=== PATIENT | female | born 1940 | race Caucasian/White ===

== ENCOUNTER 2023-01-29 12:12 | Outpatient (REF) | payer OTHER, SELFPAY ==
--- NOTE | ~2023-01-29 | US_ITS ---
EXAMINATION: US EXTRACRANIAL CAROTID DUPLEX, BILATERAL CLINICAL INFORMATION: Stroke. Smoking. Hypertension. COMPARISON: None available. TECHNIQUE: Real-time ultrasound and Doppler techniques (integrating B-mode 2-D vascular images, Doppler spectral analysis and color-flow Doppler imaging) were utilized to interrogate the extracranial carotid arteries, the vertebral arteries and proximal subclavian arteries bilaterally. The degree of stenosis is determined by criteria similar to NASCET. FINDINGS: Right Side: 1. There is severe atherosclerotic plaque seen in the bifurcation/proximal ICA region. 2. The common carotid artery PSV proximally is 46 cm/s and distally 46 cm/s. 3. The proximal internal carotid artery velocities are 404 cm/s systolic and 112 cm/s diastolic. 4. The proximal external carotid artery PSV is 130 cm/s. 5. The vertebral artery shows antegrade flow. 6. The subclavian artery waveforms are normal. Left Side: 1. There is severe atherosclerotic plaque seen in the bifurcation/proximal ICA region. 2. The common carotid artery PSV proximally is 80 cm/s and distally 64 cm/s. 3. The proximal internal carotid artery velocities are 206 cm/s systolic and 56 cm/s diastolic. 4. The proximal external carotid artery PSV is 101 cm/s. 5. The vertebral artery shows antegrade flow. 6. The subclavian artery waveforms are normal. US/US carotid duplex BI IMPRESSION: 1. RIGHT: Moderate, hemodynamically significant stenosis of the proximal right internal carotid artery corresponding to a 50-79% stenosis by velocity criteria. 2. LEFT: Moderate, hemodynamically significant stenosis of the proximal left internal carotid artery corresponding to a 50-79% stenosis by velocity criteria.
--- NOTE | ~2023-01-29 | CT_ITS ---
EXAMINATION: CT HEAD WITHOUT CONTRAST CLINICAL INFORMATION: Evaluate for stroke. COMPARISON: None. TECHNIQUE: Contiguous axial imaging was performed from the skullbase to vertex without intravenous administration of contrast. This CT examination was performed using dose optimization techniques as appropriate, variously including the following: *Automated exposure control *Adjustment of mA and/or kV according to patient size (this includes techniques or standardized protocols for targeted exams where dose is matched to indication/reason for exam; i.e. extremities or head) *Use of iterative reconstruction technique DLP: 637 mGy-cm. FINDINGS: There is no evidence of acute intracranial hemorrhage or territorial infarction. No abnormal mass effect or midline shift is seen. No extra-axial fluid collections are identified. Multiple chronic lacunar infarcts are present in the deep robertson matter structures. There are suspected chronic small vessel ischemic changes in the arlene. Generalized brain parenchymal volume loss evident. Advanced chronic white matter microangiopathic changes noted with confluent areas of low-density throughout the cerebral white matter of both hemispheres. The soft tissues are normal. The mastoid air cells and visualized portions of the paranasal sinuses are fairly well aerated. There are severe degenerative changes of the temporomandibular joints. CT/CT head/brain wo IV con IMPRESSION: Advanced chronic white matter microangiopathy and generalized brain parenchymal volume loss. The possibility of a focal acute ischemic process cannot be ruled out on the basis of this study. No large territorial infarction or acute intracranial hemorrhage. Severe degenerative changes of the temporomandibular joints.
== END 2023-01-29 12:13 | disposition home or self-care (01) ==
LOC: HO.HMGCX 12:12
PROVIDERS: Visit Provider Psychiatry & Neurology Neurology
DX: I63.9 Cerebral infarction, unspecified (principal); I65.23 Occlusion and stenosis of bilateral carotid arteries
CPT/HCPCS: 70450; 93880

== ENCOUNTER 2023-08-25 13:54 | Outpatient (AMB) | payer OTHER, SELFPAY ==
--- NOTE | 2023-08-25 14:01 | MHC.OFFVIS ---
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 Patient has no symptoms. Smokes about a half a pack a day. 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 This all began as workup in [place] where she experienced a facial droop and expressive aphasia dating back to 05/30/2022. She is moved back to [place] and most recently underwent a CT of the carotids after having a duplex study back in January of 2023. Upon discussion with her she reports she smokes about a half pack per day and is a nondiabetic. She also has a history significant for hypertension and hyperlipidemia. She now presents for vascular follow-up with CT angio of the neck. Upon discussion with her she does experience some shortness of breath when climbing a flight of stairs. Review of Systems Const All systems reviewed & are unremarkable except as noted in HPI and below Reports no additional complaints ENT Reports Normal hearing present Card Denies chest pain, Denies chest pain at rest, Denies chest pain with activity and Denies pedal edema Resp Denies cough GI Denies abdominal pain Musc Denies abnormal gait, Denies muscle cramps and Denies radiating pain into limb Skin/Breast Denies skin ulcer and Denies wounds Neuro Reports Normal hearing present and Denies abnormal gait Psych Reports no additional complaints Physical Exam Const General: cooperative, healthy appearing and comfortable Orientation/consciousness: oriented to person, oriented to place and oriented to time HEENT Head: Yes normal to inspection Neck Neck: Yes normal visual inspection Carotids: no bruits Chest Chest palpation & inspection: normal inspection of the chest Resp Effort & Inspection: normal respiratory effort and able to speak in complete sentences Auscultation: clear to auscultation bilaterally, no crackles, no rales, no rhonchi and no wheezes Cardio Rate: regular rate Rhythm: regular rhythm Heart sounds: S1 normal heart sound present and S2 normal heart sound present Bruits: no carotid bruits Peripheral pulses: Peripheral pulses 2+ throughout GI Inspection: Yes normal to inspection Skin Wounds: no wounds Hair: normal Neuro General: oriented to person, oriented to place and oriented to time Cranial nerves: Yes CN's II-XII intact bilaterally and Yes Normal hearing present Cognition (Neuro): normal cognition Motor exam (neuro): 5/5 motor strength present throughout Extrem Other: venous exam: No significant superficial varicosities or spider telangiectasias, minimal edema General: No clubbing, No cyanosis and No edema Psych Appearance: grossly normal Mental Status: mental status grossly normal Speech and movement: Normal speech and movement present Results Reviewed Results Reviewed: CT angiogram dated 05/28/2023 demonstrates right side greater than 90% left side less than 50% stenosis. Study was from [facility]. Assessment & Plan Assessment & Plan (1) Carotid stenosis, right: Code(s): I65.21 - Occlusion and stenosis of right carotid artery Category: Medical Plan: In short patient has high-grade right carotid stenosis. We have reviewed signs and symptoms of a stroke. We also discussed risk factor modification inclusive a healthy diet low in cholesterol. The patient will require right carotid endarterectomy. In addition the patient will require cardiac risk stratification and pulmonary evaluation as well. Due to the high-grade stenosis we will try to schedule as soon as possible. Thank you for allowing us to assist in her care. If there are any questions or concerns please do not hesitate to contact us. Coding Level of Care Code Est Pt Level 4 (34762) Diagnoses Carotid stenosis, right I65.21
== END 2023-08-25 15:14 | disposition home or self-care (01) ==
PROVIDERS: Visit Provider Surgery Vascular Surgery
DX: I65.21 Occlusion and stenosis of right carotid artery (principal)
CPT/HCPCS: 99214

== ENCOUNTER → 2023-08-25 13:54 | Outpatient (BNVA) | payer OTHER, SELFPAY | PROVIDERS: Visit Provider Surgery Vascular Surgery ==

== ENCOUNTER 2023-09-03 13:44 | Outpatient (AMB) | payer OTHER, SELFPAY ==
--- NOTE | 2023-09-03 13:51 | A.OFFVIS_ITS ---
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 Present Accompanied by: Sister Allergies No Known Allergies Allergy (Verified 08/25/23 14:02) Medication List - Last Reconciled 09/03/23 by Dominguez Garner MD amlodipine 5 mg PO DAILY atorvastatin 20 mg PO DAILY cholecalciferol (vitamin D3) 50 mcg PO DAILY citalopram 10 mg PO DAILY donepezil 5 mg PO DAILY xfxvcuaa-nje-xszp-FA-vit K-lut 8 mg iron-400 mcg-50 mcg (Centrum Silver Women) 1 tab PO DAILY spironolactone 25 mg PO DAILY ticagrelor (Brilinta) 90 mg PO ONCE HPI Comments Details: Elizabeth was referred here for preoperative cardiovascular risk stratification prior to right carotid endarterectomy. She has had prior history of CVA, not able to provide much history due to cognitive issues. History was mostly provided by his sister was present during the entire visit. Patient was noted to have significant right carotid stenosis by neck CTA with prior history of stroke and had been referred to vascular surgery. Now referred to us for preoperative cardiovascular risk stratification for this surgery. Patient unfortunately continues to smoke. Currently very limited activity level. Says does not not think. She does get exertional shortness of breath with activity. She is currently on once a day Brilinta dosing, she said when she was taking twice a da y she developed epistaxis. Has been seen by ENT in [place] and had undergone cauterization procedure. However she continues to be on once a day Brilinta therapy which is inadequate therapy. She is taking all her other medications regularly. Denies any clear exertional chest pain. No prolonged palpitation irregular heartbeat. No lightheadedness, syncope. No new neurologic deficits. [facility] Surgical History History of rectal surgery Hx of hysterectomy Family History Father No problems noted. Mother No problems noted. Social History Patient Tobacco Use Status: Current everyday Tobacco user Cigarette Packs Per Day: 10 Review of Systems Const Denies chills, Denies daytime sleepiness, Denies fatigue, Denies fever(s), Denies frequent falls, Denies poor appetite, Denies snoring, Denies stops breathing during sleep, Denies weakness, Denies weight gain and Denies weight loss Eyes Denies loss of vision ENT Denies dizziness and Denies hearing loss Card Denies chest pain, Denies claudication, Denies leg edema, Denies lightheadedness, Denies palpitations, Denies dyspnea, Denies dyspnea on exertion and Denies orthopnea Resp Denies cough, Denies excessive phlegm production, Denies dyspnea, Denies dyspnea on exertion, Denies snoring and Denies wheezing GI Denies abdominal pain, Denies hematochezia, Denies change in bowel habits, Denies nausea and Denies vomiting Denies urinary frequency and Denies dysuria Musc Denies arthralgias, Denies muscle weakness, Denies numbness and Denies other (frequent falls) Skin/Breast Denies nail changes and Denies rash Neuro Denies Abnormal speech present, Denies dizziness, Denies frequent falls, Denies loss of vision, Denies memory loss, Denies numbness and Denies weakness Psych Denies depression and Denies memory loss Endo Denies fatigue and Denies palpitations Rubio/Lymph Reports easy bruising and Reports other (anemia) Aller/Immun Denies wheezing Physical Exam Vital Signs: Last Vital Signs Pulse 77 09/03/23 13:52 BP 130/82 09/03/23 13:52 BMI result Body Mass Index 21.6 Const General: cooperative, comfortable, no acute distress, alert, awake and anxious Nutritional Appearance: underweight Orientation/consciousness: patient oriented x3 Limitations: no limitations HEENT Head: Yes normocephalic and Yes atraumatic Neck Neck: Yes trachea midline, Yes supple and Yes no JVD Resp Effort & Inspection: normal respiratory effort Auscultation: no rales, no wheezes and diminished lung sounds Cardio Jugular venous distension: no JVD Palpation: normal PMI Rate: regular rate Rhythm: regular rhythm Heart sounds: S1 normal heart sound present, S2 normal heart sound present, no click, no gallops and no murmurs GI Auscultation: normal bowel sounds Skin General skin exam: no rashes or lesions noted Neuro General: patient oriented x3 and no focal motor deficits Speech: No Abnormal speech present Extrem General: Yes no clubbing, cyanosis or edema Office Procedures EKG Details: EKG shows normal sinus rhythm nonspecific ST T wave changes [id number], Complete Assessment & Plan Assessment & Plan (1) Preoperative cardiovascular examination: Code(s): Z01.810 - Encounter for preprocedural cardiovascular examination Category: Medical Plan: Preoperative cardiovascular risk stratification this elderly woman with significant right carotid stenosis with very limited exercise activity with significant amount of risk factors for obstructive coronary artery disease. She does have symptoms exertional shortness of breath. This could be related to underlying COPD. I discussed with her about further testing prior to undergoing intermediate risk surgery. Would suggest exercise myocardial perfusion imaging to evaluate for myocardial ischemia. Also suggest an echocardiogram given her longstanding history of hypertension to assess for LV systolic and diastolic function to evaluate for hypertensive heart disease. Further risk stratification based on the finding of this test results which hopefully will be done in the near future. (2) Carotid stenosis, right: Code(s): I65.21 - Occlusion and stenosis of right carotid artery Category: Medical Plan: Patient with significant right carotid artery stenosis to undergo carotid endarterectomy surgery. She is currently on good antihypertensive regimen blood pressure is well controlled. Continue the same. Importance of this was discussed. Currently on statin therapy and this should be targeted to closer to 60 mg/dL through your office. However she is on inadequate antiplatelet therapy. Brilinta is twice a day drug due to its half-life. Either option could be to change to Brilinta 60 mg b.i.d. for prophylaxis and/or to aspirin and Plavix combination therapy. This was discussed with her. This will be pursued through your office. Complete smoking cessation was advised. Will follow up in the clinic if need be. Thank you for allowing me to partake in his care Orders: Orders CA stress test Today Z01.810 - Encounter for preprocedural cardiovascular examination NM cardiolite stress test 2 Weeks R07.9 - Chest pain, unspecified, Z01.810 - En counter for preprocedural cardiovascular examination CA echo transthoracic complete Today Z01.810 - Encounter for preprocedural cardiovascular examination Coding Level of Care Code New Pt Level 4 (74381) Diagnoses Preoperative cardiovascular examination Z01.810 Carotid stenosis, right I65.21 CPT Codes EKG - CPT: 40748-[id number], Complete ([id number])
[2023-09-03 13:52] VITALS: BP 130/82; PULSE 77; BMI 21.6
== END 2023-09-03 14:33 | disposition home or self-care (01) ==
PROVIDERS: PCP Internal Medicine; Visit Provider Internal Medicine Cardiovascular Disease
DX: Z01.810 Encounter for preprocedural cardiovascular examination (principal); I65.21 Occlusion and stenosis of right carotid artery
CPT/HCPCS: 93010; 99204

== ENCOUNTER → 2023-09-03 13:44 | Outpatient (BNVA) | payer OTHER, SELFPAY | PROVIDERS: PCP Internal Medicine; Visit Provider Internal Medicine Cardiovascular Disease | DX: Z01.810 Encounter for preprocedural cardiovascular examination (principal); I65.21 Occlusion and stenosis of right carotid artery; Z79.899 Other long term (current) drug therapy | CPT/HCPCS: 93005 ==

== ENCOUNTER → 2023-09-08 07:45 | Outpatient (REF) | payer OTHER, SELFPAY ==
--- NOTE | 2023-09-08 07:57 | CA_ITS ---
Transthoracic Echocardiogram Patient (Last, First, Middle): Elizabeth Layton, Gender: Female Date of : 1940 Age: 83 Procedure Date: 09/08/2023 Procedure Type: Transthoracic Echocardiogram Location: OP Height: 157.48 cm Weight: 57.15 kg BSA: 1.57 m2 Heart Rate: 69 bpm BP: 128 / 80 mmHg Legal Entity Controller: JENNIFER Referring MD: Dominguez Garner MD Symptoms: Z01.810 - Encounter for preprocedural cardiovascular examination Study Quality: Adequate ECG Rhythm: Sinus Conclusions: - The left ventricular systolic function is normal. The calculated ejection fraction is 58% by biplane method. - No obvious valvular pathology seen on this study. - Mild pulmonary hypertension is present. Findings Left Ventricle Normal left ventricular cavity size. The left ventricular systolic function is normal. The calculated ejection fraction is 58% by biplane method. There is no evidence of regional wall motion abnormalities. Evidence suggests grade I (mild) diastolic dysfunction. There is mild septal and mild basal asymmetric hypertrophy. Right Ventricle Normal right ventricular cavity size. There is mildly decreased right ventricular systolic function. Atria Both atria are normal in size. Aortic Valve There is a normal trileaflet aortic valve. There is mild calcification of the aortic valve. There is no aortic valve stenosis. There is trace (trivial) aortic valve regurgitation. Mitral Valve The mitral valve appears normal. There is no mitral valve regurgitation. There is no mitral valve stenosis. Pulmonic Valve The pulmonic valve is likely normal. Tricuspid Valve Normal tricuspid valve structure. There is trace tricuspid valve regurgitation. Mild pulmonary hypertension is present. Great Vessels The asc aorta is normal in size. Venous The inferior vena cava is normal in size and collapses greater than 50% with inspiration. Pericardium/Pleural There is no evidence of pericardial effusion. Prior Study Comparison No prior study available for comparison. Recommendations, Care & Conclusions No obvious valvular pathology seen on this study. Measurements 2D Linear Measurements IVSd: 1.02 0.6-0.9/0.6-1.0 cm LVIDd: 3.74 3.9-5.3/4.2-5.9 cm LVIDd Index: 2.38 2.4-3.2/2.2-3.1 cm/m2 LVIDs: 2.87 2.0-3.6 cm LVPWd: 1.00 0.7-1.1 cm LA Diam: 3.20 2.7-3.8/3.0-4.0 cm LAIDs Index: 2.04 1.5-2.3 cm/m2 LV Mass: 144.34 67-162/88-224 g LV Mass Index: 91.94 43-95/49-115 g/m2 LVOT Diam: 2.20 3.0+(-)1.3 cm 2D Systolic Function EF 4C: 53.80 >55% EF 2C: 64.00 >55% EF BiP: 58.30 >55% Mitral Valve MV Pk E: 0.51 MV PK A: 0.90 MV Decel Time: 287.00 E/A: 0.60 E'Lateral: 4.03 E'Medial: 2.83 E/E' Med: 17.90 E/E' Lat: 12.60 PHT: 84.00 MVA PHT: 2.62 Decel Jennings: 1.76 Aortic Valve AoV Pk Royer: 1.18 AoV Pk Grad: 6.00 CONNOR: 2.63 LVOT LVOT Pk Royer: 0.83 LVOT Mn Royer: 0.56 LVOT VTI: 0.18 LVOT Pk Grad: 3.00 LVOT Mn Grad: 1.00 LVOT Diam: 2.20 LVOT Area: 3.80 Diastolic Function MV Pk E: 0.51 MV Pk A: 0.90 E/A: 0.60 E'Medial: 2.83 E/E' Med: 17.90 E' Laterial: 4.03 E/E' Lat: 12.60 Right Ventricle TAPSE (mm): 12.20 TVS' Royer: 9.14 Tricuspid Valve TR Pk Royer: 2.97 TR Pk Grad: 35.00 RA Press: 3.00 RVSP: 38.00 Great Vessels Aorta Sinus of Valsalva: 3.10 2.0-3.5 cm Ao Asc: 3.40 2.1-3.4 cm Pulmonary Veins Pulm Vein S/D 3.30 Pulmonary Valve PV Pk Royer: 0.85 Peak PV Grad: 3.00 Updated in Other Vendor System with Status of Final Warner Colon MD electronically signed on 09/08/2023 12:42:39 PM with status of Final
== END ==
LOC: HO.CARD 07:45
PROVIDERS: PCP Internal Medicine; Visit Provider Internal Medicine Cardiovascular Disease
DX: Z01.810 Encounter for preprocedural cardiovascular examination (principal)
CPT/HCPCS: 93306

== ENCOUNTER → 2023-09-08 07:57 | Outpatient (BNV) | payer OTHER, SELFPAY | PROVIDERS: PCP Internal Medicine; Visit Provider Internal Medicine | DX: I35.8 Other nonrheumatic aortic valve disorders (principal); I42.2 Other hypertrophic cardiomyopathy | CPT/HCPCS: 93306 ==

== ENCOUNTER → 2023-09-10 08:18 | Outpatient (REF) | payer OTHER, SELFPAY ==
--- NOTE | ~2023-09-10 | NM_ITS ---
EXERCISE MYOCARDIAL PERFUSION STUDY INDICATION: Shortness of breath TECHNIQUE: The patient was brought in for an exercise perfusion study on 09/10/2023. Patient performed exercise as per Markel protocol and was injected 25 mCi of sestamibi once target heart rate was achieved. Images were obtained using the SPECT gamma camera interlaced with the gating device. Images were obtained in supine position. Resting perfusion study was performed on 09/11/2023. Patient was administered 25 mCi of sestamibi intravenously at rest. Images were then obtained in supine position. Images were processed with the software and compared side to side in short axis, horizontal long axis and vertical long axis views. Total DLP 109mGy-cm. FINDINGS: Raw images were reviewed. Arms by the patient's side. The stress perfusion study showed no significant perfusion abnormality. Both uncorrected as well as CT attenuation corrected images were reviewed. The gated study shows normal LV systolic function with calculated LVEF of 45%, but visually appears higher. LV cavity is normal in size. The gated study shows normal wall thickening and contraction of segments. Resting study shows no significant perfusion abnormality. Gating at rest reveals normal wall motion with ejection fraction at 62%. The findings are consistent with no clear reversible or fixed perfusion defects. NM/NM cardiolite stress test IMPRESSION: 1. Myocardial perfusion imaging study shows normal myocardial perfusion. 2. Gated LVEF is visually normal. 3. Transient ischemic dilatation not present. EKG component of the test reported separately.
--- NOTE | 2023-09-10 08:21 | CA_ITS ---
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 Breating normalized quickly in recovery. BP returned to 152/82 in recovery. Nuclear images pending. Test reviewed with Dr Mclaughlin. Referred By: Dominguez Garner Overread By: FATUMA LEDEZMA
== END ==
LOC: HO.CARD 08:18
PROVIDERS: PCP Internal Medicine; Visit Provider Internal Medicine Cardiovascular Disease
DX: Z01.810 Encounter for preprocedural cardiovascular examination (principal); R07.9 Chest pain, unspecified
CPT/HCPCS: 78452; 93017; 94010; 94618; A9500; J0280; J2785

== ENCOUNTER → 2023-09-10 08:21 | Outpatient (BNV) | payer OTHER, SELFPAY | PROVIDERS: PCP Internal Medicine; Visit Provider Nurse Practitioner Family | DX: R06.02 Shortness of breath (principal); I49.3 Ventricular premature depolarization | CPT/HCPCS: 78452; 93016; 93018 ==

== ENCOUNTER 2023-09-10 14:53 | Outpatient (AMB) | payer OTHER, SELFPAY ==
--- NOTE | 2023-09-10 15:01 | MHC.OFFVIS ---
Vital Signs 09/10/23 15:02 Height 5 ft 4 in Weight 126 lb 6 oz BMI 21.7 BP 160/72 H Blood Pressure Location Rt brachial Position Sitting Pulse 72 Pulse Source Pulse Oximeter Pulse Oximetry (%) 97 Oxygen Delivery Method Room Air Intake Visit Reasons: Pulm Clearance for R Carotid Endarterectomy (CEA) Allergies No Known Allergies Allergy (Verified 09/10/23 15:07) HPI HPI Pulm Clearance for R Carotid Endarterectomy (CEA): Details: Elizabeth is a pleasant 83 year old female, current 1/2 ppd smoker with 60 pack year history, with underlying COPD, h/o CVA 05/2022 on brillinta ( 1/2 dose d/t epistaxis), HTN, anxiety, hyperlipidemia and memory deficit. She was referred for preoperative pulmonary evaluation by Dr. Gee for upcoming right endarterectomy scheduled on 09/15/23. She is accompanied by her sister. She reports dyspnea on exertion, productive cough with white sputum and occasional wheezing. She denies any recent treatment for COPD exacerbation or need for prednisone/antibiotics. She has a prescription for albuterol however reports it is and requesting a refill. She denies any prior history of asthma. She denies prior hospitalization related to respiratory distress. She denies any need prior need for supplemental oxygen. She reports mother with h/o asthma and father, smoker, with h/o emphysema. 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 [facility] Medical History (Updated 09/10/23 @ 16:22 by Natasha Cruz NP) Epistaxis requiring cauterization (05/15/23) Arthritis Back pain Depression Memory deficit Anxiety Smoker Balance problem Cough CVA (cerebral vascular accident) (~05/11/22) SOB (shortness of breath) Elevated cholesterol HTN (hypertension) Surgical History (Updated 09/05/23 @ 13:38 by Glo Dailey RN) H/O tooth extraction Hx of colonoscopy History of bunionectomy of both great toes History of rectal surgery Hx of hysterectomy Family History Father No problems noted. Mother No problems noted. Social History Household Members: Other Household Members Other:: sister and [id number] Housing: House Are you a primary tree care foreman to a significant other at home: No Do you presently have visiting nurse or other home services: No 75 years or older and lives alone: No Patient Tobacco Use Status: Current everyday Tobacco user Tobacco use type: Cigarette Cigarette Packs Per Day: 10 Cigarettes Per Day: 10 Second Hand Smoke Exposure: No Review of Systems Const Denies chills, Denies excessive sweating, Denies fever(s), Denies headache(s) and Denies night sweats Eyes Denies dry eyes, Denies irritation and Denies itchy eyes ENT Reports Normal hearing present, Denies headache(s), Denies nasal congestion, Denies nasal discharge, Denies post nasal drip and Denies sore throat Card Denies chest pain, Denies chest pain at rest, Denies chest pain with activity, Denies claudication, Denies leg edema, Denies orthopnea and Denies paroxysmal nocturnal dyspnea Resp Denies chest congestion, Denies excessive phlegm production, Denies pain on inspiration, Denies pain with cough and Denies stridor Musc Denies myalgias Neuro Reports Normal hearing present and Denies headache(s) Endo Denies excessive sweating Rubio/Lymph Denies lymphadenopathy Aller/Immun Denies itchy eyes and Denies seasonal rhinorrhea Physical Exam Vital Signs: Last Vital Signs Pulse 72 09/10/23 15:02 BP 160/72 H 09/10/23 15:02 Pulse Ox 97 09/10/23 15:02 Oxygen Delivery Method Room Air 09/10/23 15:02 BMI result Body Mass Index 21.7 Const General: cooperative, comfortable, no acute distress and alert Nutritional Appearance: thin Orientation/consciousness: patient oriented x3 Limitations: no limitations HEENT Head: Yes normal to inspection, Yes normocephalic and Yes atraumatic Ears: hearing grossly normal bilaterally and external ears normal Eyes General: appearance normal, both eyes and all related structures Eyelids: Yes eyelids normal Sclerae: sclerae normal EOM: EOMs intact bilaterally Neck Neck: Yes normal visual inspection and Yes no lymphadenopathy Lymphatic: no lymphadenopathy noted Chest Chest palpation & inspection: normal inspection of the chest Resp Effort & Inspection: normal respiratory effort, able to speak in complete sentences, no audible wheezes, no stridor, not tachypneic, no tripod positioning and no use of accessory muscles Auscultation: no crackles, no rhonchi, no wheezes and diminished lung sounds Cardio Jugular venous distension: no JVD Rate: regular rate Rhythm: regular rhythm Skin Other: warm, dry General skin exam: no rashes or lesions noted Neuro General: patient oriented x3 Cranial nerves: Yes Normal hearing present Cognition (Neuro): normal cognition Gait exam (Neuro): Normal gait present Extrem General: Yes normal to inspection, Yes capillary refill normal, Yes no clubbing, cyanosis or edema and Yes no pedal edema Psych Appearance: grossly normal and well kempt Speech and movement: Normal speech and movement present and Clear speech present Affect: normal affect Attitude: cooperative Thought process: Normal thought process present Thought content: Normal thought content present Insight: Good insight present (Psych) Judgement: Good judgement present (Psych) Office Procedures 6 Minute Walk Time:: 15:51 SPO2 % at rest: 97 Pulse at rest: 75 SPO2 % during excercise: 96 Pulse during excercise: 83 SPO2 % after excercise: 95 Pulse after excercise: 80 Distance in yards walked: 100 Adilene Score: 5 Performance Observations:: Patient walked on level ground unassisted at a slow pace. Patient maintained O2 saturation of 95% or greater with pulse rate of 83 or less for the entirety of the walk. Patient does tire but denies any respiratory distress. Patient did not require supplemental oxygen. [id number] - 6 Minute Walk Spirometry Testing Spirometry Comments: In office spirometry completed with results given to provider. 41425- Spirometry Assessment & Plan Assessment & Plan (1) Encounter for preoperative pulmonary examination: Code(s): Z01.811 - Encounter for preprocedural respiratory examination Category: Medical (2) COPD (chronic obstructive pulmonary disease): Code(s): J44.9 - Chronic obstructive pulmonary disease, unspecified Category: Medical (3) Nicotine dependence, cigarettes, uncomplicated: Code(s): F17.210 - Nicotine dependence, cigarettes, uncomplicated Category: Medical Plan Elizabeth presents for preoperative pulmonary evaluation for proposed right endarterectomy with Dr. Gee scheduled for 09/15/23. She reports dyspnea on exertion, productive cough with clear sputum and intermittent wheezing. On exam patient with diminished lung sounds otherwise clear. Discussed trialing ICS/LABA to optimize respiratory status and improve symptoms which she was agreeable to. Will send Breo. Reviewed importance of good oral hygiene. She denies prior diagnosis of COPD, in office spirometry revealed moderate COPD, however poor effort. She denies recent need for antibiotics/prednisone or prior use of supplemental oxygen. 6MWT performed today and patient does not require supplemental oxygen. CXR performed which was unremarkable. Discussed obtaining chest CT, given smoking history, which she declined, willing to get in the future. Smoking cessation discussed however patient not ready to quit. At this time, she is considered low to intermediate risk for perioperative pulmonary complications. Consider bronchodilators during the perioperative period. All questions were answered and patient is in agreement of plan. Will schedule chest CT after surgery per patient request. Will follow up to review results and response to Breo. Orders: Orders AMB 6 minute walk Today J44.9 - Chronic obstructive pulmonary disease, unspecified AMB Spirometry Testing Today J44.9 - Chronic obstructive pulmonary disease, unspecified CT chest wo IV con 4 Weeks J44.9 - Chronic obstructive pulmonary disease, unspecified, R05.9 - Cough, unspecified Medications: New fluticasone furoate-vilanterol 100-25 mcg/dose (Breo Ellipta) 1 inh inhalation DAILY 60 ea 3RF J44.9 - Chronic obstructive pulmonary disease, unspecified albuterol sulfate 90 mcg/actuation 2 puffs inhalation Q4-6H PRN 1 ea 3RF Shortness Of Breath Or Wheezing Coding Level of Care Code New Pt Level 4 (23379) Diagnoses Encounter for preoperative pulmonary examination Z01.811 COPD (chronic obstructive pulmonary disease) J44.9 Nicotine dependence, cigarettes, uncomplicated F17.210 CPT Codes Coding ([id number]) Spirometry - CPT: 30753- Spirometry ([id number])
[2023-09-10 15:02] VITALS: BP 160/72; PULSE 72; O2SAT 97; BMI 21.7
[2023-09-10 16:06] VITALS: PULSE 75; O2SAT 97
== END 2023-09-10 16:12 | disposition home or self-care (01) ==
PROVIDERS: PCP Internal Medicine; Referring Provider Surgery Vascular Surgery; Visit Provider Nurse Practitioner Family
DX: Z01.811 Encounter for preprocedural respiratory examination (principal); J44.9 Chronic obstructive pulmonary disease, unspecified; F17.210 Nicotine dependence, cigarettes, uncomplicated
CPT/HCPCS: 94010; 94618; 99204

== ENCOUNTER 2023-09-15 05:58 | Inpatient (IN) | payer MEDICARE, SELFPAY ==
[2023-09-05 12:56] VITALS: BP 172/77; PULSE 74; RESP 16; O2SAT 96; BMI 22.5
[2023-09-05 14:59] LABS: Hematocrit 45.1 % (37.0-47.0); Hemoglobin 15.4 g/dl (12.0-16.0); Mean Corpuscular HGB Conc 34.1 g/dl (31.0-35.0); Mean Corpuscular Hemoglobin 29.8 pg (27.0-33.0); Mean Corpuscular Volume 87.2 fL (80.0-98.0); Mean Platelet Volume 10.4 fL (9.4-12.3); Platelet Count 202 X10*3/uL (160-400); Red Blood Count 5.17 X10*6/uL (4.20-5.50); White Blood Count 10.6 X10*3/uL (4.8-10.8)
[2023-09-05 15:01] LABS: INTERNATIONAL NORM RATIO 0.9 (0.9-1.1); Prothrombin Time 10.9 SEC (11.1-13.3)
[2023-09-05 15:04] LABS: Partial Thromboplastin Time 31.3 SEC (26.0-36.8)
[2023-09-05 15:27] LABS: Alanine Aminotransferase 16 U/L (0-31); Albumin Level 4.3 g/dL (3.5-5.0); Alkaline Phosphatase 129 U/L (39-117); Anion Gap 14 (12-20); Aspartate Amino Transferase 25 U/L (5-31); Bilirubin Total 0.4 mg/dL (0.0-1.0); Blood Urea Nitrogen 13 mg/dL (9-16); Calcium 10.3 mg/dL (8.4-10.2); Carbon Dioxide 27 mmol/L (22-29); Chloride 102 mmol/L (96-108); Creatinine Clr Calc Pharmacy 26.4; Estimated Glomerular Filt Rate 39; Glucose Random 90 mg/dL (60-115); Potassium 4.7 mmol/L (3.3-5.1); Sodium 138 mmol/L (135-145); Total Protein 8.3 g/dL (6.5-8.0)
[2023-09-15] VITALS (21 sets, daily range): BP systolic 101–172; BP diastolic 45–85; PULSE 56–72; RESP 12–24; TEMP 36–36.4; O2SAT 90–98
--- NOTE | ~2023-09-15 | XR_ITS ---
EXAMINATION: XR CHEST CLINICAL INFORMATION: Preoperative evaluation. COMPARISON: None available. TECHNIQUE: 2 views of the chest were obtained. FINDINGS: The lungs are well expanded. No focal consolidation. No pleural effusion. Cardiac silhouette is within normal limits. Age-indeterminate fracture of mid and lower thoracic spine vertebral bodies. XR/XR chest 2V IMPRESSION: No acute cardiopulmonary process. Age-indeterminate compression fractures of the mid and lower thoracic spine.
[2023-09-15 06:31] LABS: Hematocrit 40.8 % (37.0-47.0); Hemoglobin 14.2 g/dl (12.0-16.0); Mean Corpuscular HGB Conc 34.8 g/dl (31.0-35.0); Mean Corpuscular Hemoglobin 29.9 pg (27.0-33.0); Mean Corpuscular Volume 85.9 fL (80.0-98.0); Mean Platelet Volume 9.8 fL (9.4-12.3); Platelet Count 178 X10*3/uL (160-400); Red Blood Count 4.75 X10*6/uL (4.20-5.50); Red Cell Distribution Width 14.3 % (11.0-16.0); White Blood Count 8.4 X10*3/uL (4.8-10.8)
[2023-09-15 06:43] LABS: INTERNATIONAL NORM RATIO 0.8 (0.9-1.1); Prothrombin Time 10.3 SEC (11.1-13.3)
[2023-09-15 06:44] LABS: Anion Gap 14 (12-20); Blood Urea Nitrogen 15 mg/dL (9-16); Calcium 9.4 mg/dL (8.4-10.2); Carbon Dioxide 24 mmol/L (22-29); Chloride 104 mmol/L (96-108); Creatinine Clr Calc Pharmacy 30.3; Estimated Glomerular Filt Rate 46; Glucose Random 96 mg/dL (60-115); Potassium 3.5 mmol/L (3.3-5.1); Sodium 138 mmol/L (135-145)
[2023-09-15 06:46] LABS: Partial Thromboplastin Time 29.2 SEC (26.0-36.8)
[2023-09-15] MEDS: Lactated Ringers 1,000 ML 80 ML IVCONT (06:55)
--- NOTE | 2023-09-15 07:25 | P.CONAN_ITS ---
Documented by User: Rebeka Beltrán NP 09/12/23 10:58 HPI - Anesthesia Eval Consult details Narrative: 83yo F for Right Carotid Endarterectomy, 09/15/23 Pending cardiac testing/optimization Pulmo optimized No recent illness No chest pain SOB at baseline Pt questioning whether to agree to blood products if needed. After recent discussion with sister who is Jehova's Witness (patient is not), pt unsure. Discussed risks of bleeding with surgery. Dr Gee alerted and will discuss fur ther with patient preop. CVA: 2022 in [place], Daily brillinta in adequate dosage per cardiology (epitaxis with BID dosing); vascular to manage HTN: Newly started on amlodipine COPD/Smoker: no Albuterol use (needs new rx); new inhaler rx sent from pulmo clearance appt COUNT INCLUDES THE [facility] Active Problems Active Problems: All Active Problems Preoperative cardiovascular examination (Acute) Carotid stenosis, right (Acute) Past Medical History Medical History (Updated 09/10/23 @ 16:22 by Natasha Cruz NP) Epistaxis requiring cauterization (05/15/23) Arthritis Back pain Depression Memory deficit Anxiety Smoker Balance problem Cough CVA (cerebral vascular accident) (~05/11/22) SOB (shortness of breath) Elevated cholesterol HTN (hypertension) Family History Family History Father No problems noted. Mother No problems noted. Family history of problems with anesthesia: No Surgical History Surgical History (Updated 09/05/23 @ 13:38 by Glo Dailey RN) H/O tooth extraction Hx of colonoscopy History of bunionectomy of both great toes History of rectal surgery Hx of hysterectomy History of Problems with Anesthesia: No Social History Social History Household Members: Other Household Members Other:: sister and [id number] Housing: House Are you a primary rn care transition to a significant other at home: No Do you presently have visiting nurse or other home services: No Patient Tobacco Use Status: Current everyday Tobacco user Tobacco use type: Cigarette Cigarette Packs Per Day: 10 Cigarettes Per Day: 10 Smoked in Last 30 Days: Yes Patient Interested in Nicotine Replacement: Yes Patient Given Instructions on How to Stop Smoking: No Second Hand Smoke Exposure: No Use of substances other than those prescribed or required for medical reasons: No Have you been hit, kicked, punched, or otherwise hurt by someone within the past year? If so, by whom?: No Are you DNR?: No Advance Directives: No Advance Directives Information Provided: Yes Advance Directives on File: No Recently lost weight without trying: No Nutrition Risks: Surgical patient >75years Meds Allergies Allergy/AdvReac Type Severity Reaction Status Date / Time No Known Allergies Allergy Verified 09/10/23 15:07 Home Medications ?Medication ?Instructions ?Recorded ?Confirmed ?Last Taken ?Type atorvastatin 20 mg tablet 20 mg PO BEDTIME 08/25/23 09/05/23 Unknown History citalopram 10 mg tablet 10 mg PO DAILY 08/25/23 09/04/23 09/15/23 History ibknydxb-edkf-auuk 8 mg-folic 400 1 tab PO DAILY 08/25/23 09/04/23 Unknown History mcg-K 50 mcg-lutein 300 mcg tablet (Centrum Silver Women) spironolactone 25 mg tablet 25 mg PO DAILY 08/25/23 09/04/23 Unknown History amlodipine 5 mg tablet 5 mg PO DAILY 09/03/23 09/04/23 09/15/23 History donepezil 5 mg tablet 5 mg PO DAILY 09/03/23 09/04/23 Unknown History ticagrelor 90 mg tablet (Brilinta) 90 mg PO DAILY 09/03/23 09/04/23 Unknown History cholecalciferol (vitamin D3) 25 25 mcg PO DAILY 09/05/23 09/05/23 Unknown History mcg (1,000 unit) capsule (Vitamin D3) trazodone 50 mg tablet 25 mg PO BEDTIME PRN Insomnia 09/05/23 09/05/23 Unknown History Exam Height,Weight and Vital Signs: Height 5 ft 2.5 in Weight 56.699 kg Last Vital Signs Pulse 74 09/05/23 12:56 Resp 16 09/05/23 12:56 BP 172/77 H 09/05/23 12:56 Pulse Ox 96 09/05/23 12:56 O2 Del Method Room Air 09/05/23 12:56 Pertinent Lab Results Pertinent Lab Results: Lab Results 09/05/23 09/05/23 Range/Units 14:35 14:43 WBC 10.6 (4.8-10.8) X10*3/uL RBC 5.17 (4.20-5.50) X10*6/uL Hgb 15.4 (12.0-16.0) g/dl Hct 45.1 (37.0-47.0) % MCV 87.2 (80.0-98.0) fL MCH 29.8 (27.0-33.0) pg MCHC 34.1 (31.0-35.0) g/dl RDW 14.0 (11.0-16.0) % Plt Count 202 (160-400) X10*3/uL MPV 10.4 (9.4-12.3) fL Absolute Nucleated RBC 0.000 (0.0-0.012) X10*3/uL Nucleated RBC % (auto) 0.0 (0.0-0.2) /100WBC PT 10.9 L (11.1-13.3) SEC INR 0.9 (0.9-1.1) APTT 31.3 (26.0-36.8) SEC Sodium 138 (135-145) mmol/L Potassium 4.7 (3.3-5.1) mmol/L Chloride 102 (96-108) mmol/L Carbon Dioxide 27 (22-29) mmol/L Anion Gap 14 (12-20) BUN 13 (9-16) mg/dL Creatinine 1.30 (0.5-1.4) mg/dL Estim Creat Clear Calc 26.4 Estimated GFR 39 Random Glucose 90 (60-115) mg/dL Calcium 10.3 H (8.4-10.2) mg/dL Total Bilirubin 0.4 (0.0-1.0) mg/dL AST 25 (5-31) U/L ALT 16 (0-31) U/L Alkaline Phosphatase 129 H (39-117) U/L Total Protein 8.3 H (6.5-8.0) g/dL Albumin 4.3 (3.5-5.0) g/dL Blood Type O Positive Antibody Screen NEGATIVE Narrative Narrative: Per vascular note: CT angiogram dated 05/28/2023 demonstrates right side greater than 90% left side less than 50% stenosis. Study was from [facility]. EKG 08/2023 normal sinus rhythm nonspecific ST T wave changes ECHO 08/2023 Conclusions: - The left ventricular systolic function is normal. The calculated ejection fraction is 58% by biplane method. - No obvious valvular pathology seen on this study. - Mild pulmonary hypertension is present. XR chest 2V 08/2023 IMPRESSION: No acute cardiopulmonary process. Age-indeterminate compression fractures of the mid and lower thoracic spine. NM cardiolite stress test 08/2023 IMPRESSION: 1. Myocardial perfusion imaging study shows normal myocardial perfusion. 2. Gated LVEF is visually normal. 3. Transient ischemic dilatation not present. EKG component of the test reported separately. Airway TM Dist: >3cm Neck ROM: Full Denture: Upper Partial: Lower (doesnt wear) Heart: RRR Lungs: upper insp wheezes, lower fine crackles Assessment and Plan Assessment Anesthesia Assessment: Anesthesia Plan Discussed, Smoking Cess. Discussed and PAT Visit Final Anesthetic Review Family History of Problems with Anesthesia: No History of Problems with Anesthesia: No Documented by User: Julianna Wolfe DO 09/15/23 07:28 COUNT INCLUDES THE [facility] Past Medical History Medical History (Updated 09/10/23 @ 16:22 by Natasha Cruz NP) Epistaxis requiring cauterization (05/15/23) Arthritis Back pain Depression Memory deficit Anxiety Smoker Balance problem Cough CVA (cerebral vascular accident) (~05/11/22) SOB (shortness of breath) Elevated cholesterol HTN (hypertension) Family History Family History Father No problems noted. Mother No problems noted. Family history of problems with anesthesia: No Surgical History Surgical History (Updated 09/05/23 @ 13:38 by Glo Dailey RN) H/O tooth extraction Hx of colonoscopy History of bunionectomy of both great toes History of rectal surgery Hx of hysterectomy History of Problems with Anesthesia: No Social History Social History Household Members: Other Household Members Other:: sister and [id number] Housing: House Are you a primary rn care transition to a significant other at home: No Do you presently have visiting nurse or other home services: No Patient Tobacco Use Status: Current everyday Tobacco user Tobacco use type: Cigarette Cigarette Packs Per Day: 10 Cigarettes Per Day: 10 Smoked in Last 30 Days: Yes Patient Interested in Nicotine Replacement: Yes Patient Given Instructions on How to Stop Smoking: No Second Hand Smoke Exposure: No Use of substances other than those prescribed or required for medical reasons: No Have you been hit, kicked, punched, or otherwise hurt by someone within the past year? If so, by whom?: No Are you DNR?: No Advance Directives: No Advance Directives Information Provided: Yes Advance Directives on File: No Recently lost weight without trying: No Nutrition Risks: Surgical patient >75years Meds Allergies Allergy/AdvReac Type Severity Reaction Status Date / Time No Known Allergies Allergy Verified 09/10/23 15:07 Home Medications ?Medication ?Instructions ?Recorded ?Confirmed ?Last Taken ?Type atorvastatin 20 mg tablet 20 mg PO BEDTIME 08/25/23 09/05/23 Unknown History citalopram 10 mg tablet 10 mg PO DAILY 08/25/23 09/04/23 09/15/23 History ulqyqjvk-whkq-cnfa 8 mg-folic 400 1 tab PO DAILY 08/25/23 09/04/23 Unknown History mcg-K 50 mcg-lutein 300 mcg tablet (Centrum Silver Women) spironolactone 25 mg tablet 25 mg PO DAILY 08/25/23 09/04/23 Unknown History amlodipine 5 mg tablet 5 mg PO DAILY 09/03/23 09/04/23 09/15/23 History donepezil 5 mg tablet 5 mg PO DAILY 09/03/23 09/04/23 Unknown History ticagrelor 90 mg tablet (Brilinta) 90 mg PO DAILY 09/03/23 09/04/23 Unknown History cholecalciferol (vitamin D3) 25 25 mcg PO DAILY 09/05/23 09/05/23 Unknown History mcg (1,000 unit) capsule (Vitamin D3) trazodone 50 mg tablet 25 mg PO BEDTIME PRN Insomnia 09/05/23 09/05/23 Unknown History Exam Exam Date and Time: September 15, [id number] Airway Mallampati Class: II TM Dist: >3cm Neck ROM: Full Denture: Upper Heart: S1S2 Lungs: Intermittent expiratory wheezes bilaterally Assessment and Plan Assessment Anesthesia Assessment: Anesthesia Plan Discussed and Chart Reviewed Final Anesthetic Review Family History of Problems with Anesthesia: No History of Problems with Anesthesia: No NPO: Yes ASA Class: III Final Preanesthetic Review: No Changes in Pt Med Stat, Meds/Allgs Chart Reviewed, Consent Obtained/Reviewed and Anes Risks/Benef Reviewed Patient Risk: Intermediate Procedure Risk: Intermediate Anesthetic Plan Anesthetic Plan: GA and Agree w/ Assess. and Plan Disposition: Standard PACU
--- NOTE | 2023-09-15 07:36 | MHC.SHP ---
Pre-Procedural Eval Section A - 24 Hr Update-Section A only Date of Service: 09/15/23 The patient is an INPATIENT: No Changes since office visit: Yes Patient answered all questions The patient has been examined within 24 hours of the surgical procedure. The History & Physical has been completed within 30 days and I have reviewed it.: Yes Section B - Complete if H&P > 30 days Chief Complaint: Post op Allergies: Allergies Allergy/AdvReac Type Severity Reaction Status Date / Time No Known Allergies Allergy Verified 09/10/23 15:07 Plan I have reviewed the history and physical and performed a pertinent physical examination on my patient. No changes have occurred unless specified. Time Spent With Patient Time: Total time managing care of this patient today ____ minutes.
[2023-09-15] MEDS: ceFAZolin Sodium/Dextrose,Iso 2 GM/50 ML PIGGYBACK IV ×2 (07:53→13:14)
--- NOTE | 2023-09-15 10:42 | W.PM.OPN ---
Operative Note Operative Note Date of Service: 09/15/23 Narrative: Operative note by [facility] Preoperative diagnosis:1. Right Carotid stenosis 2. Prior TIA Postoperative diagnosis: Same Procedure: Right Carotid endarterectomy with patch angioplasty Surgeon:Blu Gee M.D. Training Technician: Dr. Palacio Anesthesia: General Specimens: 1 Drains: 1 Estimated blood loss: 100 mL Indications: Pleasant 83-year-old female who is a prior smoker and has high-grade right carotid stenosis. This was found upon workup of a TIA. This was confirmed with CT angiogram. The patient has signed the informed consent after reviewing risks, complications, benefits, and alternatives previously discussed with the patient. The patient was given the opportunity to ask any additional questions or voice any concerns. All questions were answered to the patient's satisfaction. Procedure in detail: Patient was taken to the operating room and placed in a supine position and prepped and draped in sterile manner with ChloraPrep. Longitudinal incision was made along the anterior border of the sternocleidomastoid carried down through the subcutaneous fat and fascia. Hemostasis was obtained with electrocautery. The platysma muscle was then divided. The carotid sheath was identified in open. The vagus nerve, Ancef cervicalis, and hypoglossal nerves were identified and avoided. The common internal and external carotids were then freed from the surrounding tissue. At this point, 5000 units of heparin was administered and allowed to circulate for 5 minutes time to take effect. The internal, common, external carotids were clamped in that order. Once this was accomplished, we proceeded with the procedure. The carotid bulb was opened with an 11 blade and extended with Moe scissors through the very tight lesion into normal internal carotid artery. This was then extended down into the common carotid artery. We then placed a [place] shunt. Then the plaque was sharply excised proximally and an eversion endarterectomy was performed successfully at the external. The plaque tapered nicely on to the internal and no tacking sutures were necessary. Heparinized saline was injected and no evidence of flapping or other debris was noted. The remaining carotid was examined, which showed no debris or flaps present. At this point a XenoSure patch was brought on to the field. This was anastomosed to the artery using a 6 0 Prolene in a running fashion. Once approximately 4/5 of the patch was sewn in the shunt was then removed. Prior to the last stitch the internal carotid was back bled through this. Heparinized saline was instilled into the carotid. The last stitch was tied. Hemostasis was excellent. The internal carotid was gently occluded while while of the external and internal were open in that order. Finally the internal was then opened and flow was restored to the entire system. Hemostasis was achieved with interrupted 7-0 Prolene sutures. The wound was irrigated thoroughly. We then placed a 7 flat Blake-Raya drain. Deep layer was reapproximated using a 2-0 poly Sorb and finally the superficial layer with a 3-0 Polysorb. The skin was closed in a subcuticular manner. The patient awoke and neurologic status was checked and appeared to be intact. Sponge, needle and instrument counts were correct. The patient tolerated the procedure well. Returned to recovery with stable vitals. This note is constructed using voice recognition software. While every effort has been made to ensure accuracy, brake drum lathe operator errors may have been included. Thank you for allowing me to participate in the care of your patient. Yours sincerely, Blu Gee MD, FACS, R.P.V.I.
--- NOTE | 2023-09-15 11:19 | PHA.MEDREC ---
Pharmacy Consult ? Medication Reconciliation Pharmacy has REVIEWED the medication reconciliation done by RN.
--- NOTE | 2023-09-15 11:26 | PM.CCHP ---
History of Present Illness Date of Service: 09/15/23 Chief Complaint: R Carotid Artery Stenosis Patient is a 83 Y F, with tobacco use c/b COPD, metabolic syndrome, prior CVA on ticagrelor, w/ known R carotid artery stenosis, now s/p endarterectomy; OR case reportedly w/ labile blood pressure, though otherwise unremarkable; Review of Systems Review of Systems: Yes all other systems are reviewed and are negative [facility] Past Medical History Medical History (Updated 09/10/23 @ 16:22 by Natasha Cruz NP) Epistaxis requiring cauterization (05/15/23) Arthritis Back pain Depression Memory deficit Anxiety Smoker Balance problem Cough CVA (cerebral vascular accident) (~05/11/22) SOB (shortness of breath) Elevated cholesterol HTN (hypertension) Family History Family History Father No problems noted. Mother No problems noted. Surgical History Surgical History (Updated 09/05/23 @ 13:38 by Glo Dailey RN) H/O tooth extraction Hx of colonoscopy History of bunionectomy of both great toes History of rectal surgery Hx of hysterectomy Social History Social History Household Members: Other Household Members Other:: sister and [id number] Housing: House Are you a primary resident care coordinator to a significant other at home: No Do you presently have visiting nurse or other home services: No Patient Tobacco Use Status: Current everyday Tobacco user Tobacco use type: Cigarette Cigarette Packs Per Day: 10 Cigarettes Per Day: 10 Smoked in Last 30 Days: Yes Patient Interested in Nicotine Replacement: Yes Patient Given Instructions on How to Stop Smoking: No Second Hand Smoke Exposure: No Use of substances other than those prescribed or required for medical reasons: No Have you been hit, kicked, punched, or otherwise hurt by someone within the past year? If so, by whom?: No Are you DNR?: No Advance Directives: No Advance Directives Information Provided: Yes Advance Directives on File: No Recently lost weight without trying: No Nutrition Risks: Surgical patient >75years Meds Allergies Allergy/AdvReac Type Severity Reaction Status Date / Time No Known Allergies Allergy Verified 09/10/23 15:07 Active Medications: Current Medications Acetaminophen (Acetaminophen 325 Mg Tablet) 650 mg PO Q6H PRN PRN Reason: Pain, Mild (Pain Scale 1-3), fever or headache Amlodipine Besylate (Amlodipine Besylate 5 Mg Tablet) 5 mg PO DAILY [facility]; Protocol Atorvastatin Calcium (Atorvastatin Calcium 20 Mg Tablet) 20 mg PO BEDTIME [facility] Calcium Carbonate (Calcium Carbonate 750 Mg Tab.Chew) 750 mg PO Q4H PRN PRN Reason: Heartburn Donepezil HCl (Donepezil Hcl 5 Mg Tablet) 5 mg PO DAILY [facility] Escitalopram Oxalate (Escitalopram Oxalate 5 Mg Tablet) 5 mg PO DAILY [facility] Sodium Chloride (Ns) 1,000 mls @ 80 mls/hr IVCONT .[id number] [facility] Cefazolin Sodium/Dextrose (Ancef) 2 gm in 50 mls @ 100 mls/hr IV POSTOP ONE Stop: 09/15/23 14:29 Magnesium Hydroxide (Milk Of Magnesia 30 Ml Oral.Susp) 30 ml PO DAILY PRN PRN Reason: Constipation Melatonin (Melatonin 3 Mg Tablet) 6 mg PO BEDTIME PRN PRN Reason: Insomnia Morphine Sulfate (Morphine Sulfate 2 Mg/Ml Cartridge) 2 mg IVPUSH Q4H PRN; Protocol PRN Reason: Pain, Severe (Pain Scale 7-10) Multivitamins/Vitamin C (Multivitamin Tablet) 1 tab PO DAILY [facility] Oxycodone HCl (Oxycodone Hcl Immed Release 5 Mg Tablet) 5 mg PO Q4H PRN PRN Reason: Pain, Moderate(Pain Scale 4-6) Sodium Chloride (0.9 % Sodium Chloride Flush 3 Ml Syringe) 3 ml IVFLUSH QSHIFT [facility] Spironolactone (Spironolactone 25 Mg Tablet) 25 mg PO DAILY [facility]; Protocol Ticagrelor (Ticagrelor 90 Mg Tablet) 90 mg PO DAILY [facility] Vitamin D (Cholecalciferol (Vitamin D3) 25 Mcg Tablet) 25 mcg PO DAILY [facility] Home Medications ?Medication ?Instructions ?Recorded ?Confirmed ?Last Taken ?Type atorvastatin 20 mg tablet 20 mg PO BEDTIME 08/25/23 09/05/23 Unknown History citalopram 10 mg tablet 10 mg PO DAILY 08/25/23 09/04/23 09/15/23 History [id number] 8 mg-folic 400 1 tab PO DAILY 08/25/23 09/04/23 Unknown History mcg-K 50 mcg-lutein 300 mcg tablet (Centrum Silver Women) spironolactone 25 mg tablet 25 mg PO DAILY 08/25/23 09/04/23 Unknown History amlodipine 5 mg tablet 5 mg PO DAILY 09/03/23 09/04/23 09/15/23 History donepezil 5 mg tablet 5 mg PO DAILY 09/03/23 09/04/23 Unknown History ticagrelor 90 mg tablet (Brilinta) 90 mg PO DAILY 09/03/23 09/04/23 Unknown History cholecalciferol (vitamin D3) 25 25 mcg PO DAILY 09/05/23 09/05/23 Unknown History mcg (1,000 unit) capsule (Vitamin D3) trazodone 50 mg tablet 25 mg PO BEDTIME PRN Insomnia 09/05/23 09/05/23 Unknown History Physical Exam Vital Signs: Vital Signs: Last Vital Signs Temp 97.0 F 09/15/23 10:46 Pulse 57 09/15/23 11:16 Resp 17 09/15/23 11:16 BP 101/68 09/15/23 11:16 Pulse Ox 96 09/15/23 11:16 O2 Del Method Simple Mask 09/15/23 11:16 O2 Flow Rate 4 09/15/23 11:16 BMI result Body Mass Index 22.5 Const: General: cooperative, comfortable, no acute distress, well developed, alert, awake and Physically active Orientation/consciousness: patient oriented x3 HEENT: Head: Yes normal to inspection, Yes normocephalic and Yes atraumatic Eyes: General: appearance normal, both eyes and all related structures Neck: Other: appreciable drain w/ overlying dressing, clean, dry, intact; no appreciable fluctuance, induration Neck: Yes normal visual inspection, Yes full ROM, Yes no meningeal signs, Yes trachea midline and Yes supple Chest: Chest palpation & inspection: normal inspection of the chest Resp: Other: no appreciable rales, rhonchi, wheezing Effort & Inspection: normal respiratory effort Cardio: Rate: regular rate Rhythm: regular rhythm GI: Inspection: Yes normal to inspection, No Abdominal wall edema and No distended Palpation (GI): Soft to palpation, not firm, nontender, no guarding and not rigid : External Female Exam: normal external appearance Skin: General skin exam: no rashes or lesions noted Neuro: General: patient oriented x3, tone normal, moves all extremities, no meningeal signs and no focal motor deficits Extrem: General: Yes normal to inspection, Yes full ROM, Yes capillary refill normal and Yes no clubbing, cyanosis or edema Psych: Appearance: grossly normal Results Labs 09/15/23 06:24 09/15/23 06:24 Labs: Laboratory Results - last 24 hr 09/15/23 06:24 MCV 85.9 MCH 29.9 MCHC 34.8 RDW 14.3 Plt Count 178 MPV 9.8 Absolute Nucleated RBC 0.000 Nucleated RBC % (auto) 0.0 PT 10.3 L INR 0.8 L APTT 29.2 Anion Gap 14 Estim Creat Clear Calc 30.3 Estimated GFR 46 Random Glucose 96 Calcium 9.4 D Assessment and Plan (1) Carotid stenosis, right: Status: Acute Plan Patient is a 83 Y F, with tobacco use c/b COPD, metabolic syndrome, prior CVA on ticagrelor, w/ known R carotid artery stenosis, now s/p endarterectomy; OR case reportedly w/ labile blood pressure, though otherwise unremarkable; N: no acute issues; prior CVA; unspecified memory deficit CV: no acute issues; hypertension, hyperlipidemia, home amlodipine, atorvastatin R: no acute issues; COPD, DuoNebs as needed GI: advance diet as tolerated : no acute issues H: no acute issues ID: no acute issues E: monitor hypo-/hyper-glycemia
[2023-09-15] MEDS: 0.9 % Sodium Chloride 1,000 ML 80 ML IVCONT ×2 (12:20→23:50)
[2023-09-15] MEDS: Melatonin 3 MG TABLET 6 MG PO (20:05)
[2023-09-15] MEDS: Atorvastatin Calcium 20 MG TABLET PO (20:06)
[2023-09-15] MEDS: oxyCODONE HCl Immed Release 5 MG TABLET PO (20:07)
[2023-09-15] MEDS: traZODone HCL 25 MG HALFTAB 12.5 MG PO (23:47)
[2023-09-15] MEDS: 0.9 % Sodium Chloride Flush 3 ML SYRINGE IVFLUSH (23:53)
[2023-09-16] VITALS (16 sets, daily range): BP systolic 114–167; BP diastolic 39–80; PULSE 65–82; RESP 11–25; TEMP 36.2–36.6; O2SAT 90–96; BMI 22.5
[2023-09-16 06:11] LABS: MANUAL DIFF FLAG NO
[2023-09-16 06:13] LABS: Basophils Percent Auto 0.2 % (0-2); Hematocrit 34.8 % (37.0-47.0); Hemoglobin 11.9 g/dl (12.0-16.0); Imm Gran Abs Auto 0.04 X10*3/uL (0.00-0.03); Imm Gran Pct Auto 0.3 % (0.0-0.4); Lymphocytes Absolute Auto 0.8 X10*3/uL (1.2-4.9); Lymphocytes Percent Auto 6.4 % (20-40); Mean Corpuscular HGB Conc 34.2 g/dl (31.0-35.0); Mean Corpuscular Hemoglobin 29.8 pg (27.0-33.0); Mean Platelet Volume 10.2 fL (9.4-12.3); Monocytes Absolute Auto 0.8 X10*3/uL (0.1-1.2); Neutrophils Absolute Auto 11.5 x10*3/uL (2.0-8.3); Neutrophils Percent Auto 87.1 % (45-73); Platelet Count 155 X10*3/uL (160-400); Red Cell Distribution Width 14.4 % (11.0-16.0); White Blood Count 13.2 X10*3/uL (4.8-10.8)
[2023-09-16 06:32] LABS: Anion Gap 13 (12-20); Blood Urea Nitrogen 15 mg/dL (9-16); Calcium 9.2 mg/dL (8.4-10.2); Carbon Dioxide 23 mmol/L (22-29); Chloride 106 mmol/L (96-108); Creatinine Clr Calc Pharmacy 31.5; Estimated Glomerular Filt Rate 48; Glucose Random 116 mg/dL (60-115); Potassium 3.9 mmol/L (3.3-5.1); Sodium 138 mmol/L (135-145)
--- NOTE | 2023-09-16 08:17 | PM.CCPN ---
Subjective Subjective Date of Service: 09/16/23 Interval History: no significant overnight events Critical Care Time (minutes): 0 Physical Exam Vital Signs: Vital Signs: Last Vital Signs Temp 97.2 F 09/16/23 08:00 Pulse 66 09/16/23 08:00 Resp 17 09/16/23 08:00 BP 161/74 H 09/16/23 08:00 Pulse Ox 95 09/16/23 08:00 O2 Del Method Nasal Cannula 09/16/23 08:00 O2 Flow Rate 4 09/16/23 08:00 BMI result Body Mass Index 22.5 Const: General: cooperative, healthy appearing, comfortable, no acute distress, well developed, alert, awake and Physically active Orientation/consciousness: patient oriented x3 HEENT: Head: Yes normal to inspection, Yes normocephalic and Yes atraumatic Eyes: General: appearance normal, both eyes and all related structures Neck: Other: appreciable drain, bandage R neck, clean, dry, intact; no appreciable fluctuance, induration Neck: Yes full ROM, Yes trachea midline and Yes supple Chest: Chest palpation & inspection: normal inspection of the chest Resp: Other: no appreciable rales, rhonchi, wheezing Effort & Inspection: normal respiratory effort Cardio: Rate: regular rate Rhythm: regular rhythm GI: Inspection: Yes normal to inspection, No Abdominal wall edema and No distended Palpation (GI): Soft to palpation, not firm, nontender, no guarding and not rigid Skin: General skin exam: no rashes or lesions noted Neuro: General: patient oriented x3, tone normal, moves all extremities and no focal motor deficits Extrem: General: Yes normal to inspection, Yes full ROM, Yes capillary refill normal and Yes no clubbing, cyanosis or edema Psych: Appearance: grossly normal Objective Data Labs 09/16/23 05:42 09/16/23 05:42 Labs: Laboratory Results - last 24 hr 09/16/23 05:42 WBC 13.2 H RBC 4.00 L Hgb 11.9 L Hct 34.8 L MCV 87.0 MCH 29.8 MCHC 34.2 RDW 14.4 Plt Count 155 L MPV 10.2 Immature Gran % (Auto) 0.3 Neut % (Auto) 87.1 H Lymph % (Auto) 6.4 L [place] % (Auto) 6.0 Eos % (Auto) 0.0 Baso % (Auto) 0.2 Lymph # (Auto) 0.8 L [place] # (Auto) 0.8 Eos # (Auto) 0.0 Baso # (Auto) 0.0 Abs Immat Gran (auto) 0.04 H Absolute Neuts (auto) 11.5 H Absolute Nucleated RBC 0.000 Nucleated RBC % (auto) 0.0 Sodium 138 Potassium 3.9 Chloride 106 Carbon Dioxide 23 Anion Gap 13 BUN 15 Creatinine 1.09 Estim Creat Clear Calc 31.5 Estimated GFR 48 Random Glucose 116 H Calcium 9.2 Progress Note: A&P Assessment and plan (1) Carotid stenosis, right: Status: Acute (2) COPD (chronic obstructive pulmonary disease): Status: Acute Plan Patient is a 83 Y F, with tobacco use c/b COPD, metabolic syndrome, prior CVA on ticagrelor, w/ known R carotid artery stenosis, now s/p endarterectomy; OR case reportedly w/ labile blood pressure, though otherwise unremarkable N: no acute issues; prior CVA; unspecified memory deficit CV: no acute issues; hypertension, hyperlipidemia, home amlodipine, atorvastatin R: no acute issues; COPD, DuoNebs as needed GI: regular diet : no acute issues H: no acute issues ID: no acute issues E: monitor hypo-/hyper-glycemia P: no acute issues Quality Stroke Does the patient have a stroke diagnosis?: Yes Reason for No Anti-thrombotic by Day Two: N/A - Med Ordered VTE Prior VTE?: No VTE Risk Level:: Medical - moderate - high VTE Device Contraindication: N/A - Device Ordered VTE Drug Contraindication: Treatment Not Tolerated
[2023-09-16] MEDS: Acetaminophen 325 MG TABLET 650 MG PO (08:48)
[2023-09-16] MEDS: 0.9 % Sodium Chloride Flush 3 ML SYRINGE IVFLUSH (08:50)
[2023-09-16] MEDS: Multivitamin TABLET 1 TAB PO (08:50)
[2023-09-16] MEDS: Donepezil HCl 5 MG TABLET PO (08:50)
[2023-09-16] MEDS: Escitalopram Oxalate 5 MG TABLET PO (08:50)
[2023-09-16] MEDS: amLODIPine Besylate 5 MG TABLET PO (08:50)
[2023-09-16] MEDS: Spironolactone 25 MG TABLET PO (08:50)
[2023-09-16] MEDS: Cholecalciferol (Vitamin D3) 25 MCG TABLET PO (08:51)
[2023-09-16] MEDS: Ticagrelor 90 MG TABLET PO (08:51)
--- NOTE | 2023-09-16 09:48 | HO.POSTANES ---
Post Anesthesia Evaluation Post Anesthesia Evaluation Date of Service: 09/16/23 Vital Signs: Vital Signs Temp Pulse Pulse Resp BP BP Pulse Ox 09/16/23 09:00 71 22 H 126/62 92 09/16/23 08:00 138/52 L 09/16/23 08:00 97.2 F 66 17 161/74 H 95 09/16/23 07:29 94 09/16/23 07:00 66 22 H 164/68 H 95 09/16/23 06:00 97.8 F 72 18 157/61 H 95 09/16/23 05:00 78 11 L 161/80 H 96 09/16/23 04:00 65 167/78 H 09/16/23 04:00 72 15 164/70 H 95 09/16/23 03:00 70 16 156/77 H 95 09/16/23 02:00 69 13 144/73 H 95 09/16/23 01:00 74 25 H 159/78 H 95 09/16/23 00:00 77 15 151/79 H 96 09/15/23 23:59 72 172/85 H 09/15/23 23:00 97.3 F 70 13 153/80 H 97 09/15/23 22:00 71 17 144/67 H 95 O2 Del Method O2 Flow Rate 09/16/23 09:00 Nasal Cannula 4 09/16/23 08:00 09/16/23 08:00 Nasal Cannula 4 09/16/23 07:29 Nasal Cannula 09/16/23 07:00 Nasal Cannula 4 09/16/23 06:00 Nasal Cannula 4 09/16/23 05:00 Nasal Cannula 4 09/16/23 04:00 09/16/23 04:00 Nasal Cannula 4 09/16/23 03:00 Nasal Cannula 4 09/16/23 02:00 Nasal Cannula 4 09/16/23 01:00 Nasal Cannula 4 09/16/23 00:00 Nasal Cannula 4 09/15/23 23:59 09/15/23 23:00 Nasal Cannula 4 09/15/23 22:00 Nasal Cannula 4 Anesthesia: General Endotracheal-GETA Mental Status: Awake Pain Control: Satisfactory Nausea/Vomiting: None Hydration: Adequate Anesthesia-Related Issues: No Anes. Related Issues
--- NOTE | 2023-09-16 09:58 | MHC.CM.PN ---
Met w/pt to discuss d/c planning: pt lives in a duplex with her sister and brother in law residing above her. They assist pt w/any care needs/transportation. Pt denies using DME and states her sister has her HCP, Will and other documents: Of note, pt slightly forgetful but will reorient self and correct information initially given. Pt to d/c to home today with outpt follow up. Her sister will transport her to home. IMM given: HCP requested
--- NOTE | 2023-09-16 13:24 | PM.DS ---
DS: Providers Provider Date of Service: 09/16/23 Date of admission: 09/15/23 05:58 Primary care physician: Debbie Valle MD DS: Diagnosis Discharge Diagnosis (1) Carotid stenosis, right: Status: Acute (2) COPD (chronic obstructive pulmonary disease): Status: Acute DS: Summary Hospital Course Hospital Course: Patient underwent right carotid endarterectomy on 09/15/2023. Did well postoperatively and was observed in the ICU overnight. Postop day 1 was discharged. Time Attestation Discharge Coordination Time (in mins): Thirty-five minutes Quality: Safe Use of Opioids Does Pt have an Active Cancer Diagnosis on the Problem List?: No Quality: Stroke Does the patient have a stroke diagnosis?: No Physical Exam Vital Signs: Vital Signs: Last Vital Signs Temp 97.3 F 09/16/23 12:00 Pulse 74 09/16/23 12:57 Resp 20 09/16/23 12:57 BP 114/54 L 09/16/23 12:57 Pulse Ox 90 L 09/16/23 12:57 O2 Del Method Room Air 09/16/23 12:57 O2 Flow Rate 4 09/16/23 09:00 Oxygen Flow Rate 2 09/16/23 07:29 BMI result Body Mass Index 22.5 DS: Data Data Completed and Pending Pending studies at discharge: Pending at discharge 09/15/23 09:46 Surgical [PTH] Routine Labs on day of discharge: Laboratory Results - last 24 hr 09/16/23 05:42 WBC 13.2 H RBC 4.00 L Hgb 11.9 L Hct 34.8 L MCV 87.0 MCH 29.8 MCHC 34.2 RDW 14.4 Plt Count 155 L MPV 10.2 Immature Gran % (Auto) 0.3 Neut % (Auto) 87.1 H Lymph % (Auto) 6.4 L [place] % (Auto) 6.0 Eos % (Auto) 0.0 Baso % (Auto) 0.2 Lymph # (Auto) 0.8 L [place] # (Auto) 0.8 Eos # (Auto) 0.0 Baso # (Auto) 0.0 Abs Immat Gran (auto) 0.04 H Absolute Neuts (auto) 11.5 H Absolute Nucleated RBC 0.000 Nucleated RBC % (auto) 0.0 Sodium 138 Potassium 3.9 Chloride 106 Carbon Dioxide 23 Anion Gap 13 BUN 15 Creatinine 1.09 Estim Creat Clear Calc 31.5 Estimated GFR 48 Random Glucose 116 H Calcium 9.2 Discharge Plan Discharge Anticipated Discharge Date/Time: 09/16/23 13:21 Patient Disposition: Home, Self-Care Discharge Diagnosis: Status post right carotid endarterectomy Referrals: Debbie Valle MD [Primary Care Provider] - 1 Week Discharge Medications: Continued cholecalciferol (vitamin D3) [Vitamin D3] 25 mcg (1,000 unit) Capsule 25 mcg PO DAILY trazodone 50 mg tablet 25 mg PO BEDTIME PRN (Reason: Insomnia) citalopram 10 mg tablet 10 mg PO DAILY atorvastatin 20 mg tablet 20 mg PO BEDTIME Centrum Silver Women 8 mg iron-400 mcg-50 mcg tablet 1 tab PO DAILY spironolactone 25 mg tablet 25 mg PO DAILY fluticasone furoate-vilanterol [Breo Ellipta] 100-25 mcg/dose blister with device 1 inh inhalation DAILY Qty: 60 3RF albuterol sulfate 90 mcg/actuation HFA aerosol inhaler 2 puff inhalation Q4-6H PRN (Reason: Shortness Of Breath Or Wheezing) Qty: 1 3RF amlodipine 5 mg tablet 5 mg PO DAILY donepezil 5 mg tablet 5 mg PO DAILY Brilinta 90 mg tablet 90 mg PO DAILY Discharge Orders: Discharge Order (Routine); Ordered 09/16/23 Ordered By: Blu Gee Diet: Advance to usual diet Activity on Discharge: As tolerated Stand Alone Forms: Patient Portal Discharge page Print Language: Arabic Activity Restrictions/Additional Instructions: Skin tape was used and you may shower tomorrow. Take it easy today and you may ambulate around the house. Within 24 hours you can resume normal activity You may climb a flight of stairs as tolerated Do not lift anything heavier than a gallon of milk See Dr. Gee in follow-up in approximately 2 weeks time. You should already have an appointment if not please call my office at [phone] Please use Tylenol as needed for pain If you notice excessive bleeding from the neck please immediately call my office or return to the emergency room. Care Plan Goals: Surveillance follow-up of carotid Health Concerns: Status post carotid endarterectomy Plan of Treatment: Surveillance follow-up of carotid Assessment: Status post carotid endarterectomy
== END 2023-09-16 15:00 | disposition home or self-care (01) | DRG 39 ==
LOC: HO.SSSA 06:33 → HO.ICU 10:54
PROVIDERS: Nurse Practitioner; Admitting Provider Surgery Vascular Surgery; PCP Internal Medicine; Visit Provider Surgery Vascular Surgery
PROC: 03CH0ZZ Extirpation of Matter from Right Common Carotid Artery, Open Approach (ICD-10-PCS; CPT 35301; principal; 2023-09-15 07:30)
DX: I65.21 Occlusion and stenosis of right carotid artery (principal); J44.9 Chronic obstructive pulmonary disease, unspecified; E88.810 Metabolic syndrome; F17.210 Nicotine dependence, cigarettes, uncomplicated; Z71.6 Tobacco abuse counseling; Z86.73 Personal history of transient ischemic attack (TIA), and cerebral infarction without residual deficits; Z79.51 Long term (current) use of inhaled steroids; Z79.899 Other long term (current) drug therapy
CPT/HCPCS: 36415; 71046; 80048; 80053; 85025; 85027; 85610; 85730; 86850; 86900; 86901; 88304; 88311; A4649; C1758; C1768; J0131; J0690; J1100; J1644; J1920; J2250; J2305; J2371; J2405; J2704; J2795; J3010

== ENCOUNTER → 2023-09-15 05:58 | Outpatient (BNV) | payer MEDICARE, SELFPAY | PROVIDERS: Admitting Provider Surgery Vascular Surgery; PCP Internal Medicine; Visit Provider Internal Medicine Critical Care Medicine | DX: J44.9 Chronic obstructive pulmonary disease, unspecified (principal); I65.21 Occlusion and stenosis of right carotid artery | CPT/HCPCS: 99223; 99232 ==

== ENCOUNTER → 2023-09-15 05:58 | Outpatient (BNV) | payer MEDICARE, SELFPAY | PROVIDERS: Admitting Provider Surgery Vascular Surgery; PCP Internal Medicine; Visit Provider Surgery Vascular Surgery | DX: I65.21 Occlusion and stenosis of right carotid artery (principal); J44.9 Chronic obstructive pulmonary disease, unspecified | CPT/HCPCS: 35301; 99024 ==

== ENCOUNTER 2023-10-02 14:55 | Outpatient (AMB) | payer OTHER, SELFPAY ==
--- NOTE | 2023-10-02 15:03 | A.OFFVIS_ITS ---
Intake Visit Reasons: 2 week follow up right CEA Intake Note: Patient presents for 2 week follow up right CEA. She has no complaints. Accompanied by: Sister Allergies No Known Allergies Allergy (Verified 10/02/23 15:06) HPI HPI 2 week follow up right CEA: Details: Very pleasant 83-year-old female presents for follow-up status post right CEA. This was done for TIA. No interval issues. No postoperative issues. Reports tolerating regular diet. Neurologically intact. Now for routine postoperative follow-up [facility] Medical History Epistaxis requiring cauterization (05/15/23) Arthritis Back pain Depression Memory deficit Anxiety Smoker Balance problem Cough CVA (cerebral vascular accident) (~05/11/22) SOB (shortness of breath) Elevated cholesterol HTN (hypertension) Surgical History H/O tooth extraction Hx of colonoscopy History of bunionectomy of both great toes History of rectal surgery Hx of hysterectomy Family History Father No problems noted. Mother No problems noted. Social History Household Members: None Household Members Other:: sister and [id number] Housing: House Are you a primary nursing care attendant to a significant other at home: No Do you presently have visiting nurse or other home services: No 75 years or older and lives alone: No Patient Tobacco Use Status: Current everyday Tobacco user Tobacco use type: Cigarette Cigarette Packs Per Day: 10 Cigarettes Per Day: 10 e-Cigarette/Vaping Use: Never Used Second Hand Smoke Exposure: No service: No Review of Systems Const All systems reviewed & are unremarkable except as noted in HPI and below Reports no additional complaints ENT Reports Normal hearing present Card Denies chest pain, Denies chest pain at rest, Denies chest pain with activity and Denies pedal edema Resp Denies cough GI Denies abdominal pain Musc Denies abnormal gait, Denies muscle cramps and Denies radiating pain into limb Skin/Breast Denies skin ulcer and Denies wounds Neuro Reports Normal hearing present and Denies abnormal gait Psych Reports no additional complaints Physical Exam Const General: cooperative, healthy appearing and comfortable Orientation/consciousness: oriented to person, oriented to place and oriented to time HEENT Head: Yes normal to inspection Neck Neck: Yes normal visual inspection Carotids: no bruits Chest Chest palpation & inspection: normal inspection of the chest Resp Effort & Inspection: normal respiratory effort and able to speak in complete sentences Auscultation: clear to auscultation bilaterally, no crackles, no rales, no rhonchi and no wheezes Cardio Rate: regular rate Rhythm: regular rhythm Heart sounds: S1 normal heart sound present and S2 normal heart sound present Bruits: no carotid bruits Peripheral pulses: Peripheral pulses 2+ throughout GI Inspection: Yes normal to inspection Skin Other: Right neck incision well healing Wounds: no wounds Hair: normal Neuro General: oriented to person, oriented to place and oriented to time Cranial nerves: Yes CN's II-XII intact bilaterally and Yes Normal hearing present Cognition (Neuro): normal cognition Motor exam (neuro): 5/5 motor strength present throughout Extrem Other: venous exam: No significant superficial varicosities or spider telangiectasias, minimal edema General: No clubbing, No cyanosis and No edema Psych Appearance: grossly normal Mental Status: mental status grossly normal Speech and movement: Normal speech and movement present Assessment & Plan Assessment & Plan (1) Carotid stenosis, right: Comment: 09/15/2023 - right carotid endarterectomy Code(s): I65.21 - Occlusion and stenosis of right carotid artery Category: Medical Plan: In short patient has done well from her carotid surgery. We have reviewed signs and symptoms of a stroke. We also discussed risk factor modification inclusive a healthy diet low in cholesterol. The patient will require surveillance follow-up but has plan to move to [place] in October. She was instructed to establish care with a vascular surgeon out there. Once established we would be happy to transfer records.. Should there be any changes or signs or symptoms of a stroke or the patient decides to remain in the area we would be happy to see her back. Thank you for allowing us to participate in this patient's care. If there are any questions or concerns please do not hesitate to contact us. Coding Level of Care Code Global (11076) Diagnoses Carotid stenosis, right I65.21
== END 2023-10-02 15:55 | disposition home or self-care (01) ==
PROVIDERS: Visit Provider Surgery Vascular Surgery
DX: I65.21 Occlusion and stenosis of right carotid artery (principal)
CPT/HCPCS: 99024

== ENCOUNTER → 2023-10-02 14:55 | Outpatient (BNVA) | payer OTHER, SELFPAY | PROVIDERS: Visit Provider Surgery Vascular Surgery ==